=== PATIENT | female | born 1985 | race Caucasian/White ===

== ENCOUNTER 2023-08-17 06:15 | Day surgery (SDC) | payer OTHER, SELFPAY ==
[2023-08-14 13:29] VITALS: BMI 26.0
[2023-08-14 14:40] LABS: Hematocrit 36.9 % (37.0-47.0); Hemoglobin 12.6 g/dL (12.0-16.0); Mean Corp Hgb Conc. 34.1 g/dL (33.0-37.0); Mean Corpuscular Hgb 30.7 pg (27.0-31.0); Mean Corpuscular Volume 89.8 fL (81.0-99.0); Mean Platelet Volume 9.7 fL (7.4-10.4); Platelet Count 227 10^3/uL (130-400); Red Blood Cell Count 4.11 10^6/uL (4.20-5.40); Red Cell Dist. Width 13.2 % (11.5-14.5); White Blood Cell Count 6.2 10^3/uL (4.8-10.8)
[2023-08-14 14:48] LABS: HCG, Serum Qualitative Screen Negative
[2023-08-17] VITALS (14 sets, daily range): BP systolic 82–106; BP diastolic 50–67; BMI 26.0
[2023-08-17] MEDS: NORMOSOL-R 1000 IV ×3 (06:50→22:26)
[2023-08-17] MEDS: TRANSDERM-SCOP 1 PATCH TRANSDERM (07:13)
--- NOTE | 2023-08-17 12:08 | W.IMMPOSTOP ---
Addendum entered and electronically signed by Jonah Castillo MD 08/17/23 12:38:
Correction: 2. RIGHT side of cyst adherent to rectum, safe plane within cyst used for dissection resulting in spillage
Dic# [id number]
Original Note:
Surgical Immed Post Op Note
-
Primary Surgeon: Hodan
Assisting Surgeon: Anna
Pre-op Diagnosis: Dermoid cyst LEFT ovary
Post-op Diagnosis: Dermoid cyst LEFT ovary
Procedure Performed: Laparoscopic LSO and RIGHT salpingectomy, lysis of adhesions
Anesthesia Type: General
Specimen / Cultures:
1. LEFT ovary and cyst
2. RIGHT salpinx
Estimated Blood Loss: See [employer] note
Complications: None
Operative Findings:
1. Large 11 cm dermoid cyst, sticky adhesions to surrounding structures, BHAVIN performed for > 90 min
2. LEFT side of cyst adherent to rectum, safe plane within cyst used for dissection resulting in spillage
3. Circumferential dissection down to pelvic floor performed
4. Final removal of cyst wall and contents performed by [employer] (see separate operative report for details)
[2023-08-17] MEDS: TORADOL 15 MG IV ×2 (14:08→20:39)
[2023-08-17] MEDS: HEPARIN 5000 UNITS SC (20:39)
--- NOTE | 2023-08-17 23:53 | PTCARENOTE ---
Pt [address] s/p LSO and right salpingectomy and removal of dermoid cyst SDS but staying overnight BP has remained 88/56 for the last 2 hours HR 68 O2 97 on RA. Pt asymptomatic denies pain receiving scheduled Toradol or SOB, Mari terrance @125ml/hr, up
to void 1x with scant output on peripad. Looking back pt's BP has been 100s/50s since admission today. Pt has tolerated small dinner and drinking. Reached out to [facility]
--- NOTE | 2023-08-17 23:57 | PTCARENOTE ---
[facility] notified, followup with VS in 1 hour.
[2023-08-18 01:00] VITALS: BP 97/56
--- NOTE | 2023-08-18 01:41 | PTCARENOTE ---
Pt BP 97/56 HR 70, denies pain or SOB, cont void scant bleeding on peripad, IV fluids infusing.
[2023-08-18] MEDS: TORADOL 15 MG IV ×2 (02:35→08:46)
[2023-08-18 03:47] VITALS: BP 91/53
[2023-08-18] MEDS: NORMOSOL-R IV (05:00)
[2023-08-18 06:54] LABS: Hematocrit 32.4 % (37.0-47.0); Hemoglobin 10.8 g/dL (12.0-16.0); Mean Corp Hgb Conc. 33.3 g/dL (33.0-37.0); Mean Corpuscular Volume 93.1 fL (81.0-99.0); Mean Platelet Volume 10.1 fL (7.4-10.4); Platelet Count 188 10^3/uL (130-400); Red Blood Cell Count 3.48 10^6/uL (4.20-5.40); Red Cell Dist. Width 13.5 % (11.5-14.5); White Blood Cell Count 7.8 10^3/uL (4.8-10.8)
[2023-08-18 07:20] VITALS: BP 93/62
[2023-08-18 07:27] LABS: Blood Urea Nitrogen 9 mg/dl (7-17); Carbon Dioxide 24 mmol/L (22-30); Chloride 105 mmol/L (98-107); Estimated Creatinine Clearance 124 ml/min; Potassium 3.8 mmol/L (3.5-5.1); Sodium 138 mmol/L (135-145)
[2023-08-18] MEDS: HEPARIN 5000 UNITS SC (08:46)
--- NOTE | 2023-08-18 10:05 | W.PN.GYN.DG ---
Today's Communication / Plan
-
D/c home today
Has post op appoint already scheduled with me in the office
Assessment / Plan
-
Assessment: s/p LSO/ Rt salpingectomy/ BHAVIN
Adm for observation s/p extensive Lysis of bowel adhesions and long OR time
Pt is doing great! HS stable
No evidence of bleeding or infection
[place]rock house diet
OOB/Ambulating
Good pain control
Plan:
Pt is ready for d/c. Her Rxs were sent to her pharmacy yesterday
Instructions/ limitations d/w pt
Call with fever/ increased pain etc
Subjective / Objective Data
Subjective Data
No problems overnight. Good pain control. No nausea/vomiting
[place]rock house diet. No CP/SOB/Leg pain. +spont void without any problems. Min vaginal spotting
Objective Data
Vital Signs
Temp Pulse Resp BP Pulse Ox
98.3 F 63 18 93/62 99
08/18/23 07:20 08/18/23 07:20 08/18/23 07:20 08/18/23 07:20 08/18/23 07:20
Intake & Output
08/17/23 08/18/23 08/19/23
06:59 06:59 06:59
Intake Total 3005 / 3005
Output Total 700 / 700
Balance 2305 / 2305
Intake:
Oral fluids 1330 / 1330
IV fluids (Total) 1675 / 1675
normosol 175 / 175
Output:
Urine, Burns 700 / 700
Other:
Number of approximated MODERATE 2
amounts of urine
Physical Exam
-
Cardiac: Regular rate & rhythm
Lungs: Clear: Bilateral
Abdomen: Soft and Other
Bowel Sounds: Normal
Extremities: No Calf Tenderness and No Edema
Incision: Clean, Dry, Intact and No Erythema
Other Findings:
Approp tender/ Non distended
Data Reviewed
-
Lab Data
08/18/23 05:37
08/18/23 05:37
== END 2023-08-18 11:01 | disposition home or self-care (01) ==
LOC: SDS 06:15
PROVIDERS: ATTENDING PHYSICIAN Obstetrics & Gynecology Gynecology; FAMILY PHYSICIAN Physician Assistant Medical
DX: D27.1 Benign neoplasm of left ovary (principal); D28.2 Benign neoplasm of uterine tubes and ligaments; Z30.2 Encounter for sterilization; K66.0 Peritoneal adhesions (postprocedural) (postinfection)
CPT/HCPCS: 58661; 88302; 88305; 88311; 36415; 80051; 82565; 84520; 84703; 85027; 86850; 86900; 86901

== ENCOUNTER 2025-07-15 07:54 | Emergency (ER) | payer OTHER, SELFPAY ==
[2025-07-15 07:59] VITALS: BP 117/74
[2025-07-15] MEDS: TYLENOL 1000 MG PO (09:17)
--- NOTE | 2025-07-15 09:18 | ED.GENMED ---
History of Present Illness
General
Chief Complaint: Musculo-Skeletal Complaint
Source: patient and spouse
Exam Limitations: none
Time Seen by Provider: 07/15/25 08:58
Nursing documentation reviewed up to this point in time: agreed with
History of Present Illness
History of Present Illness:
39-year-old female presenting to the emergency department today with concerns of right sided thigh pain starting the groin go to the right knee over the past day or so. Denies any specific trauma similar symptoms in the past. Denies any injury
that she is aware of. Denies numbness or weakness distally. No history of back issues. No redness swelling or warmth no fevers.
Review of Systems
Review of Systems
Allergies reviewed?: Yes
All Other Systems: ROS reviewed and negative except as documented in HPI and ROS
Phy Exam
Physical Exam
Physical Exam:
GENERAL: Alert , in no apparent distress
EYE: pupils equal and reactive
NECK: Supple, no significant adenopathy.
ENT: o/p clr, mmm.
CARDIAC: Regular rate and rhythm .
LUNGS: Clear breath sounds bilaterally, no acute respiratory distress, no wheezes/rales/rhonchi
ABDOMEN: Soft, without focal tenderness, no r/g, no cvat
NEUROLOGICAL: Alert and oriented, no focal neuro deficits
SKIN: Warm and dry, skin intact.
MUSCULOSKELETAL: No edema, well perfused.
PSYCH: Normal and appropriate interaction.
Course
Orders/Labs/Results
Orders:
Orders
07/15/25 09:11
CR Femur - Right Min 2 Vw Urgent
Comment:
Reason For Exam: leg pain
Venous Doppler Lwr Ext Rt [US Periph Venous LOWER Ext RT] Urgent
Comment:
Reason For Exam: right leg swellling pain thigh
07/15/25 09:12
Acetaminophen [Tylenol] 1,000 mg PO NOW STA
07/15/25 10:21
Dexamethasone Pf [Decadron] 10 mg PO NOW STA
Ketorolac [Toradol] 30 mg IM NOW STA
Vital Signs
Initial and Last Documented VS:
Initial Vital Signs
Temp Pulse Resp BP Pulse Ox
99 F 52 20 117/74 96
07/15/25 07:59 07/15/25 07:59 07/15/25 07:59 07/15/25 07:59 07/15/25 07:59
Last Documented Vital Signs
Temp Pulse Resp BP Pulse Ox
99 F 52 20 117/74 96
07/15/25 07:59 07/15/25 07:59 07/15/25 07:59 07/15/25 07:59 07/15/25 09:19
MDM/Problems Addressed
MDM/Problems Addressed:
39-year-old female presenting with concerns of right sided thigh discomfort no clear inciting event. No redness or warmth on examination good range of motion of the hip knee and ankle. No signs of infection. Ultrasound was ordered for possibility
of blood clot. Good distal pulses though. No abdominal pain. X-ray additionally without evidence of acute bone change. Plan for symptomatic treatment otherwise close outpatient follow-up. Return precautions given.
*Pulse Oximetry
SaO2: 96
Oxygen Mode of Delivery: Room air
Patient hypoxic: no (96)
*Critical Care Note
Total Time (30-74mins, 75-104mins- exclusive of procedures): Not Applicable
ED Attending Note
-
Portions of this chart may have been created with voice recognition software.� Occasional wrong word or��sound alike� substitutions may have occurred due to the inherent limitations of voice recognition software.
Discharge Plan
Departure
Patient Disposition: Home (Routine Discharge)
Date of Disposition: 07/15/25
Time of Disposition: 10:42
Patient with high blood pressure during this ER visit?: No
Condition: Good
Covid-19: Not Applicable
Discharge Problem:
Leg pain
Instructions: Muscle and Bone Pain (DC)
Prescriptions:
New
methylprednisolone [Medrol (Vivek)] 4 mg tablets,dose pack
See Rx Instructions .ROUTE .COMPLEX Qty: 21 0RF
Rx Instructions:
for 6 days
oxycodone 5 mg tablet
5 mg PO BID PRN (Reason: Pain) Qty: 7 0RF
Referrals:
Ayaan Lipscomb MD [Family Provider, Family Practice]
Activity Restrictions/Additional Instructions:
You came to the emergency department today with concerns of right sided leg pain. Here you had a reassuring exam with normal ultrasound and x-ray. Please take the prescribed medications for discomfort and follow close with the primary care doctor.
Return for any worsening, new or concerning symptoms.
Interventions
Interventions:
*General Assessment Last Done: 07/15/25 07:59
*Neglect/Abuse Screening Last Done: 07/15/25 07:59
*ED COVID-19 Vaccine History Last Done: 07/15/25 10:20
*ED Influenza Vaccine History Last Done: 07/15/25 10:20
[facility] Risk Assessment Tool Last Done: 07/15/25 10:20
*Risk Screen - Suicide (C-SSRS) Last Done: 07/15/25 07:59
ED-Musculoskeletal Assessment Last Done: 07/15/25 10:03
Discharge Date and Time
Print Language: [id number]
[2025-07-15 10:20] VITALS: BMI 27.5
[2025-07-15] MEDS: DECADRON 10 MG PO (10:29)
[2025-07-15] MEDS: TORADOL 30 MG IM (10:29)
== END 2025-07-15 10:58 | disposition home or self-care (01) ==
LOC: EMR 07:54
PROVIDERS: EMERGENCY PHYSICIAN Student in an Organized Health Care Education/Training Program; FAMILY PHYSICIAN Family Medicine
DX: M79.604 Pain in right leg (principal)
CPT/HCPCS: 99284; 96372; 73552; 93971